=== PATIENT | male | born 1985 | race Asian ===

== ENCOUNTER 2016-09-10 14:36 | Emergency (ER) | payer SELFPAY ==
[2016-09-10 15:09] VITALS: BP 122/77; PULSE 78; RESP 17; TEMP 98.8; O2SAT 96
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
== END 2016-09-10 16:25 | disposition home or self-care (01) ==
DX: S81.012A Laceration without foreign body, left knee, initial encounter (principal); F17.200 Nicotine dependence, unspecified, uncomplicated; V18.0XXA Pedal cycle driver injured in noncollision transport accident in nontraffic accident, initial encounter; Y99.8 Other external cause status; Y93.89 Activity, other specified